=== PATIENT | female | born 2000 | race Caucasian/White ===

== ENCOUNTER 2020-07-28 11:32 | Emergency (ER) | payer OTHER ==
[~2020-07-28] VITALS: Ht 154.9 cm; Wt 59.0 kg
[2020-07-28 11:36] VITALS: BP 119/77
--- NOTE | 2020-07-28 11:45 | NUR ---
PT AMB TO BED 3.
--- NOTE | 2020-07-28 11:46 | NUR ---
20/F BIB FAMILY C/O LOWER ABDOMINAL PAIN RADIATING TO MID ABDOMEN X YESTERDAY. DENIES DYSURIA. LAST BM 2 DAYS AGO. ABDOMEN SOFT, NO TENDERNESS. LMP 07/27/20. PATIENT STATES PAIN OF 8/10 AT THIS TIME. PATIENT POSITIONED FOR COMFORT; HOB ELEVATED; BEDRAILS UP X1; BED DOWN. ER MD MADE AWARE OF PT STATUS.
--- NOTE | 2020-07-28 12:25 | NUR ---
dr thomas at bedside evaluating pt.
[2020-07-28] MEDS ORDERED: KETOROLAC 60 MG/2 ML VIAL IM ONE (12:30)
--- NOTE | 2020-07-28 12:55 | NUR ---
PT COMFORTABLE IN BED SIDE RAIL UP AND LOCK AT LOWEST POSITION LOCK.
[2020-07-28 13:13] VITALS: BP 119/77
--- NOTE | 2020-07-28 13:14 | NUR ---
Patient discharged with v/s stable. Written and verbal after care instructions given and explained regarding contipation. Patient alert, oriented and verbalized understanding of instructions. Ambulatory with steady gait. All questions addressed prior to discharge. ID band removed. Patient advised to follow up with PMD. Rx of miralax and naprosyn given. Patient educated on indication of medication including possible reaction and side effects. Opportunity to ask questions provided and answered.
== END 2020-07-28 13:14 | disposition home or self-care (01) ==
LOC: MED 11:32
DX: K59.00 Constipation, unspecified (principal); N94.6 Dysmenorrhea, unspecified
CPT/HCPCS: 81002; 81025; 96372; 99283; J1885